=== PATIENT | male | born 1985 | race Caucasian/White ===

== ENCOUNTER 2016-04-11 16:23 | Emergency (ER) | payer BC, OTHER ==
--- NOTE | 2016-04-11 17:24 | ERNOTE ---
ER Male HPI Date of Service: 04/11/16 Stated Complaint: GROIN PAIN Time Seen by Provider: 04/11/16 17:03 Source: patient Exam Limitations: no limitations Immunizations: IMMUNIZATION HX Immunizations Up to Date Yes History of Influenza Vaccine No Hx Pneumococcal Vaccination No Allergies/Adverse Reactions: Allergies No Known Allergies Allergy (Verified 04/11/16 16:53) Home Medications: HOME MEDICATIONS Doxycycline Monohydrate 100 mg PO BID #20 tablet 04/11/16 [Last Taken Unknown] - History of Present Illness Narrative: Pt. comes in with c/o L testicular pain for two days. Pt. states that he was treated for chlamydia and epidydimitis a month ago with resolution of symptoms at that time and states that the pain he is currently experiencing is different than previous and more in his abdomen and his testicle and his groin and not just in his groin. Pt. denies any SOB or dysuria, dizziness, fevers, or NVD. Review of Systems - Review of Systems Constitutional: Present: no symptoms reported. Absent: recent illness, fever, chills, weakness, fatigue, malaise EYE: Present: no symptoms reported ENT: Present: no symptoms reported Respiratory: Present: no symptoms reported. Absent: shortness of breath, cough , wheezing Cardiology: Present: no symptoms reported. Absent: chest pain, palpitations, edema Gastrointestinal/Abdominal: Present: no symptoms reported. Absent: nausea, vomiting, diarrhea, abdominal pain Genitourinary: Present: no symptoms reported. Absent: frequency, pain, dysuria , decreased urinary output Musculoskeletal: Present: no symptoms reported. Absent: back pain, joint pain Skin: Present: no symptoms reported Neurological: Present: no symptoms reported. Absent: headache, dizziness/light- headedness, numbness, tingling All Other Systems: All systems neg except as marked - Patient's Past Medical History Patient History - Medical: Migraines Patient History - Cardiac/Respiratory: No pertinent hx Patient History - Cancer: No Hx of Cancer Patient History - Surgical Procedures: Other Patient History - Other: None - Social History Living Situations: home Smoking Status: Former smoker Patient requests Smoking Cessation Consult: No Initiate information on Smoking Cessation: No - Immunizations Immunizations Up to Date: Yes Hx Pneumococcal Vaccination: No History of Influenza Vaccine: No Physical Exam - Physical Exam General Appearance: Present: wd/wn, alert, no apparent distress Eye Exam: Normal inspection: bilateral, PERRL: bilateral, EOMI: bilateral Ears, Nose, Throat: Present: normal ENT inspection, hearing grossly normal, normal pharynx Neck: Present: normal inspection, nontender. Absent: lymphadenopathy (R), lymphadenopathy (L) Respiratory: Present: no respiratory distress, normal breath sounds, no accessory muscle use, chest nontender, lungs clear Cardiovascular/Chest: Present: regular rate, rhythm, no murmur, normal peripheral pulses Gastrointestinal/Abdominal: Present: normal bowel sounds, nontender, nondistended, soft, no organomegaly Male Genitals Exam: Present: scrotum tenderness (L), testicular tenderness (L), other - mass firm L testicle 2cm in diameter Back Exam: Present: normal inspection, normal range of motion, no CVA tenderness , no vertebral tenderness Extremity Exam: Present: normal inspection, non-tender, no edema, normal range of motion Neurological Exam: Present: alert, oriented, normal mood/affect, no motor/ sensory deficits ED Progress - Date and Time Seen: Date and Time: 04/11/16 18:51 Feel that this is likely sequela of chlamydial infection will retreat and have pt. follow up with urology to have cyst evaluated - Vital Signs Patient's Vital Signs:: I have reviewed the patient's vital signs. Vital Signs: Vital Signs 04/11/16 16:50 Temperature 36.6 C Pulse Rate 80 Respiratory 16 Rate Blood Pressure 133/76 O2 Sat by Pulse 99 Oximetry - Progress/Reassessment Chief Complaint: Genitourinary Problem Departure Clinical Impression: Epididymitis, Testicular abscess - Departure Disposition: Home self-care Condition: Good Instructions: Abscess, [id number] Additional Instructions: Please follow up with urologist in 2-3 days. Referrals: Jamie Concecpion MD [Associate] - Prescriptions: Doxycycline Monohydrate 100 mg PO BID #20 tablet
[2016-04-11] MEDS ORDERED: AZITHROMYCIN 250 MG TABLET PO ONE (18:50)
[2016-04-11] MEDS ORDERED: DOXYCYCLINE HYCLATE 100 MG TABLET PO ONE (18:50)
[2016-04-12 01:56] VITALS: BP 131/77
== END 2016-04-11 19:00 | disposition home or self-care (01) ==
LOC: ER 16:23
DX: N45.1 Epididymitis (principal); N45.4 Abscess of epididymis or testis; Z87.891 Personal history of nicotine dependence